=== PATIENT | female | born 1975 | race Caucasian/White ===

== ENCOUNTER 2018-02-26 03:53 | Inpatient (IN) | payer BC ==
[2018-02-26] MEDS: LACTATED RINGER'S 1,000 ML IV ×3 (04:59→12:04)
[2018-02-26] MEDS ORDERED: MISOPROSTOL 200 MCG TAB PR ×2 (05:00→12:30)
[2018-02-26] MEDS ORDERED: OXYTOCIN 30 UNITS/LR 500 ML IV ×2 (05:00→12:30)
[2018-02-26] MEDS ORDERED: METHYLERGONOVINE 0.2 MG INJ IM ×2 (05:00→12:30)
[2018-02-26] MEDS ORDERED: CARBOPROST 250 MCG INJ IM ×2 (05:00→12:30)
[2018-02-26] MEDS: TERBUTALINE 1 MG/ML INJ SC (05:05)
[2018-02-26 05:13] LABS: ADD MAN DIFF? NO
[2018-02-26 05:16] LABS: BASOPHILS % 0.4 % (0.0-2.0); EOSINOPHILS # 0.1 10^3/ul (0.0-0.5); EOSINOPHILS % 0.8 % (0.0-7.0); HEMATOCRIT 34.4 % (37.0-47.0); LYMPHOCYTES % 21.5 % (15.0-51.0); MEAN CORPUSCULAR HEMOGLOBIN 24.8 pg (29.0-33.0); MEAN CORPUSCULAR VOLUME 77.5 fl (82.0-101.0); MONOCYTE # 0.7 10^3/ul (0.3-0.9); MONOCYTES % 7.7 % (0.0-11.0); NEUTROPHIL # 6.5 10^3/ul (1.6-7.5); NEUTROPHILS % 69.2 % (39.0-77.0); PLATELET COUNT 215 10^3/UL (140-415); RED BLOOD COUNT 4.44 10^6/ul (4.20-5.40); RED CELL DISTRIBUTION WIDTH 19.9 % (11.5-14.5)
[2018-02-26 05:16] LABS: WHITE BLOOD COUNT 9.3 10^3/ul (4.8-10.8)
[2018-02-26 05:37] LABS: GLUCOSE 83 mg/dl (70-220)
[2018-02-26 05:42] LABS: INR 1.03; PARTIAL THROMBOPLASTIN TIME 30.5 Sec (25.0-35.0); PROTIME 13.6 Sec (11.9-14.9); PT RATIO 1.1
[2018-02-26 06:06] LABS: HEPATITIS B SURFACE ANTIGEN NEGATIVE (NEGATIVE)
[2018-02-26 06:24] LABS: ADD UMIC YES; UR ASCORBIC ACID NEGATIVE (NEGATIVE); UR BACTERIA FEW /HPF (NONE SEEN); UR BILIRUBIN (Dip) 1+ mg/dL (NEGATIVE); UR BLOOD (Dip) 3+ mg/dL (NEGATIVE); UR CLARITY CLOUDY (CLEAR); UR COLOR AMBER (YELLOW); UR GLUCOSE (Dip) NEGATIVE (NEGATIVE); UR KETONES (Dip) NEGATIVE (NEGATIVE); UR LEUKOCYTE ESTERASE (Dip) TRACE Leu/ul (NEGATIVE); UR MUCUS MANY /HPF (NONE SEEN); UR NITRITE (Dip) NEGATIVE (NEGATIVE); UR RBC 5 /HPF (0-5); UR SPECIFIC GRAVITY (Dip) 1.026 (1.003-1.030); UR SQUAMOUS EPITHELIAL CELL MANY /HPF (FEW); UR TOTAL PROTEIN (Dip) 1+ mg/dl (NEGATIVE); UR UROBILINOGEN (Dip) 2+ mg/dL (NEGATIVE); UR WBC 26 /HPF (0-5)
[2018-02-26] MEDS ORDERED: ONDANSETRON 4 MG INJ (07:00)
[2018-02-26] MEDS ORDERED: morphine SULFATE/PF (10 MG/10 ML) INJ (10:17)
[2018-02-26] MEDS ORDERED: BUPIVACAINE 0.75%/DEXT (SPINAL) 2 ML INJ (10:18)
[2018-02-26] MEDS ORDERED: PHENYLephrine 10 MG INJ (10:33)
[2018-02-26] MEDS: CEFAZOLIN 2 GM/50 ML (PMX) 50 ML IVPB (10:47)
[2018-02-26] MEDS ORDERED: OXYTOCIN 10 UNIT INJ ×2 (11:01→11:43)
[2018-02-26] MEDS ORDERED: MIDAZOLAM 1 MG/ML 2 ML INJ (11:10)
[2018-02-26] MEDS ORDERED: LACTATED RINGER'S 1,000 ML IV (12:03)
[2018-02-26] MEDS ORDERED: ZOLPIDEM 5 MG TAB PO (12:30)
[2018-02-26] MEDS ORDERED: DIPHENHYDRAMINE 50 MG INJ IV ×2 (12:30)
[2018-02-26] MEDS ORDERED: NALBUPHINE HCL (10 MG/1 ML) INJ IV (12:30)
[2018-02-26] MEDS ORDERED: OXYCODONE/ACETAMINOPHEN (5/325) TAB PO ×2 (12:30)
[2018-02-26] MEDS ORDERED: HYDROmorphONE 0.5 MG/0.5 ML SYG IV ×2 (12:30)
[2018-02-26] MEDS ORDERED: NALOXONE (0.4 MG/ML) INJ IV (12:30)
[2018-02-26] MEDS ORDERED: ACETAMINOPHEN 325 MG TAB PO (12:30)
[2018-02-26] MEDS ORDERED: ONDANSETRON 4 MG INJ IV ×2 (12:30)
[2018-02-26] MEDS ORDERED: MIDAZOLAM 1 MG/ML 2 ML INJ IV (12:30)
[2018-02-26] MEDS ORDERED: KETOROLAC 30 MG INJ IV (12:30)
[2018-02-26] MEDS ORDERED: EPHEDrine SULFATE 50 MG/5 ML SYG IV (12:30)
[2018-02-26] MEDS ORDERED: MEPERIDINE 25 MG INJ IV (12:30)
[2018-02-26] MEDS: OXYTOCIN 30 UNITS/LR 500 ML IV ×2 (12:54→19:02)
[2018-02-26 16:00] LABS: RAPID PLASMA REAGIN NONREACTIVE (NR)
[2018-02-26] MEDS: LANOLIN 7 GM TUBE TOP (17:17)
[2018-02-26] MEDS: ONDANSETRON 4 MG INJ IV (17:17)
[2018-02-26] MEDS: CEFAZOLIN 1 GM/50 ML (PMX) 50 ML IV (19:02)
[2018-02-27] MEDS: CEFAZOLIN 1 GM/50 ML (PMX) 50 ML IV (02:44)
[2018-02-27] MEDS: LACTATED RINGER'S 1,000 ML IV ×4 (07:14→22:06)
[2018-02-27 09:22] LABS: ADD MAN DIFF? NO
[2018-02-27 09:39] LABS: ABNORMAL IP MESSAGE 1; BASOPHILS % 0.2 % (0.0-2.0); EOSINOPHILS % 0.3 % (0.0-7.0); HEMATOCRIT 30.3 % (37.0-47.0); HEMOGLOBIN 9.6 g/dl (12.0-16.0); LYMPHOCYTES # 1.8 10^3/ul (0.8-2.9); LYMPHOCYTES % 12.5 % (15.0-51.0); MEAN CORPUSCULAR HEMOGLOBIN 25.1 pg (29.0-33.0); MEAN CORPUSCULAR HGB CONC 31.7 g/dl (32.0-37.0); MEAN CORPUSCULAR VOLUME 79.3 fl (82.0-101.0); MEAN PLATELET VOLUME 12.6 fl (7.4-10.4); MONOCYTE # 1.1 10^3/ul (0.3-0.9); MONOCYTES % 7.4 % (0.0-11.0); NEUTROPHIL # 11.6 10^3/ul (1.6-7.5); PLATELET COUNT 205 10^3/UL (140-415); RED BLOOD COUNT 3.82 10^6/ul (4.20-5.40); RED CELL DISTRIBUTION WIDTH 19.6 % (11.5-14.5)
[2018-02-27 09:39] LABS: WHITE BLOOD COUNT 14.7 10^3/ul (4.8-10.8)
[2018-02-27 09:42] LABS: POSITIVE DIFF @See below
[2018-02-27 10:06] LABS: ALANINE AMINOTRANSFERASE 23 IU/L (13-69); ALBUMIN 2.7 g/dl (3.3-4.9); ALKALINE PHOSPHATASE 138 IU/L (42-121); ANION GAP 8 (8-16); ASPARTATE AMINO TRANSFERASE 38 IU/L (15-46); BILIRUBIN,INDIRECT 0.5 mg/dl (0-1.1); BILIRUBIN,TOTAL 0.5 mg/dl (0.2-1.3); BLOOD UREA NITROGEN 9 mg/dl (7-20); CALCIUM 8.4 mg/dl (8.4-10.2); CARBON DIOXIDE 25 mmol/L (21-31); CHLORIDE 103 mmol/L (97-110); GLUCOSE 71 mg/dl (70-220); SODIUM 132 mmol/L (135-144); TOTAL PROTEIN 5.7 g/dl (6.1-8.1)
[2018-02-27] MEDS: BISACODYL 10 MG SUPP PR (11:31)
[2018-02-27] MEDS: CEFAZOLIN 1 GM/50 ML (PMX) 50 ML IVPB (12:02)
[2018-02-27] MEDS: MAGNESIUM HYDROXIDE 30ML CUP PO (21:38)
[2018-02-27] MEDS: SENNA/DOCUSATE NA (8.6MG/50MG) TAB PO (21:38)
[2018-02-27] MEDS: IBUPROFEN 600 MG TAB PO (23:33)
[2018-02-28] MEDS: LACTATED RINGER'S 1,000 ML IV ×2 (04:04→12:04)
[2018-02-28] MEDS: IBUPROFEN 600 MG TAB PO (06:03)
[2018-02-28] MEDS: MAGNESIUM HYDROXIDE 30ML CUP PO (16:52)
[2018-02-28] MEDS: SENNA/DOCUSATE NA (8.6MG/50MG) TAB PO (22:08)
[2018-03-01] MEDS: IBUPROFEN 600 MG TAB PO (00:48)
[2018-03-01] MEDS: SENNA/DOCUSATE NA (8.6MG/50MG) TAB PO (09:28)
== END 2018-03-01 13:15 | disposition home or self-care (01) | DRG 765 ==
LOC: OBT 03:53 → L-D 03:54 → OBT 04:45 → L-D 04:45 → PP1 14:24
PROC: 10D00Z1 Extraction of Products of Conception, Low, Open Approach (ICD-10-PCS; principal; 2018-02-26 11:00)
PROC: 3E033VJ Introduction of Other Hormone into Peripheral Vein, Percutaneous Approach (ICD-10-PCS; 2018-02-26 11:00)
DX: O34.211 Maternal care for low transverse scar from previous cesarean delivery (principal); O40.3XX0 Polyhydramnios, third trimester, not applicable or unspecified; O24.429 Gestational diabetes mellitus in childbirth, unspecified control; Z3A.38 38 weeks gestation of pregnancy; Z37.0 Single live birth
CPT/HCPCS: 80053; 81001; 82947; 82962; 85025; 85610; 85730; 86592; 86850; 86900; 86901; 87340; 99464